=== PATIENT | male | born 1995 | race Caucasian/White ===

== ENCOUNTER 2017-11-08 19:48 | Emergency (ER) | payer SELFPAY ==
[2017-11-08] MEDS ORDERED: levETIRAcetam 500 MG Tab PO STA (20:05)
--- NOTE | 2017-11-08 20:09 | EDM.PDOC ---
ED HPI GENERAL MEDICAL PROBLEM - General Chief Complaint: Neuro Symptoms/Deficits Stated Complaint: seizure Time Seen by Provider: 11/08/17 19:50 Source of Information: Reports: Patient, EMS, Old Records History Limitations: Reports: No Limitations - History of Present Illness INITIAL COMMENTS - FREE TEXT/NARRATIVE: 22 yo male presents here after a presumed witnessed seizure. He has now been here 3 times for seizures, but reports multiple seizures in the interim for which he was not seen. No tongue biting or urinary incontinence ever, including tonight. He reports no remote hx of either head trauma or meningitis, but his father has had lifelong seizures. EMS reported that patient was post-ictal upon their arrival, vitals stable en route. 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 Now works at [employer] in the [employer]. Head CT scans and drug screens were negative on prior ER visits. All other blood work WNL's. Seizures not witnessed by EMS, patient not able to describe. No witnesses here at this time. Onset: Sudden Onset Date: 11/08/17 Duration: Minutes:, Resolved Prior to Arrival Location: Reports: Generalized Quality: Reports: Other (no pain reported. ) Severity: Moderate Improves with: Reports: Other (time) Worsens with: Reports: Other (unknown) Context: Reports: Other (Recurrent seizures over the past several weeks.) Associated Symptoms: Reports: No Other Symptoms. 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 Neurological History: Reports: None Social & Family History - Family History Family Medical History: Noncontributory - Caffeine Use Caffeine Use: Reports: Soda ED ROS GENERAL - Review of Systems Review Of Systems: See Below Constitutional: Reports: No Symptoms HEENT: Reports: No Symptoms, Other (no tongue injury) Respiratory: Reports: No Symptoms Cardiovascular: Reports: No Symptoms GI/Abdominal: Reports: No Symptoms : Reports: No Symptoms. Denies: Incontinence Musculoskeletal: Reports: No Symptoms Skin: Reports: No Symptoms Neurological: Reports: Seizure. Denies: Headache - Physical Exam Exam: See Below Exam Limited By: No Limitations General Appearance: Alert, WD/WN, No Apparent Distress Eye Exam: Bilateral Eye: EOMI, Normal Inspection, PERRL Ears: Normal External Exam, Normal Canal, Hearing Grossly Normal, Normal TMs Nose: Normal Inspection, Normal Mucosa, No Blood Throat/Mouth: Normal Inspection, Normal Lips, Normal Oropharynx, Normal Voice Head Exam: Atraumatic, Normocephalic Neck: Normal Inspection, Supple, Non-Tender Respiratory/Chest: No Respiratory Distress, Lungs Clear, Normal Breath Sounds, No Accessory Muscle Use Cardiovascular: Regular Rate, Rhythm GI/Abdominal: Normal Bowel Sounds, Soft, Non-Tender Neuro Exam (Abbreviated): Alert, Oriented, CN II-XII Intact, Normal Cognition, No Motor/Sensory Deficits Back Exam: Normal Inspection. No: CVA Tenderness (R), CVA Tenderness (L) Extremities: Normal Inspection, Normal Range of Motion, Non-Tender, No Pedal Edema Psychiatric: Normal Affect, Normal Mood Skin Exam: Warm, Dry, Intact, Normal Color, No Rash Departure - Departure Time of Disposition: 20:30 Disposition: Home, Self-Care 01 Condition: Good Clinical Impression: Seizure - Discharge Information *PRESCRIPTION DRUG MONITORING PROGRAM REVIEWED*: Not Applicable *COPY OF PRESCRIPTION DRUG MONITORING REPORT IN PATIENT CARI: Not Applicable Instructions: Epilepsy, [id number] Referrals: PCP,None [Primary Care Provider] - Forms: ED Department Discharge Additional Instructions: Increase your Keppra to 1000 mg every 12 hrs. Keep your scheduled appt with neurology. Someone will be contacting you to return for a brain MRI. No driving or operating dangerous equipment. Return here as needed.
== END 2017-11-08 20:35 | disposition home or self-care (01) ==
LOC: FB.ED 19:48
DX: R56.9 Unspecified convulsions (principal); Z88.1 Allergy status to other antibiotic agents; Z88.0 Allergy status to penicillin; Z79.899 Other long term (current) drug therapy
CPT/HCPCS: 99284; A9270

== ENCOUNTER 2023-06-26 17:35 | Emergency (ER) | payer SELFPAY ==
[2023-06-26] MEDS ORDERED: Sodium Chloride 0.9% 10 ML Syringe FLUSH PRN (17:53)
[2023-06-26] MEDS: Metoprolol Tartrate 25 MG Tab PO ONE (18:19)
[2023-06-26] MEDS: Aspirin 81 MG Tab.Chew PO STA (18:20)
[2023-06-26 18:23] LABS: BASOPHILS ABSOLUTE AUTO 0.1 x10-3/uL (0.0-0.3); EOSINOPHILS ABSOLUTE AUTO 0.1 x10-3/uL (0.0-0.6); EOSINOPHILS PERCENT AUTO 0.8 % (0.1-6.8); HEMATOCRIT 45.6 % (38.3-50.1); HEMOGLOBIN 15.3 g/dL (12.9-17.7); LYMPHOCYTES ABSOLUTE AUTO 2.8 x10-3/uL (0.5-4.5); LYMPHOCYTES PERCENT AUTO 30.9 % (15.8-45.3); MEAN CORPUSCULAR HEMOGLOBIN 27.9 pg (27.0-33.3); MEAN CORPUSCULAR HGB CONC 33.5 g/dL (28.7-35.3); MEAN CORPUSCULAR VOLUME 83.3 fL (80.8-98.7); MEAN PLATELET VOLUME 9.8 fL (6.7-11.0); MONOCYTES ABSOLUTE AUTO 0.7 x10-3/uL (0.0-1.2); MONOCYTES PERCENT AUTO 7.9 % (5.5-15.2); NEUTROPHILS ABSOLUTE AUTO 5.4 x10-3/uL (1.7-6.9); NEUTROPHILS PERCENT AUTO 59.4 % (40.3-71.8); PLATELET COUNT,PLT 274 x10(3)uL (117-477); RED BLOOD CELL COUNT 5.48 x10(6)uL (3.90-5.90); RED CELL DISTRIBUTION WIDTH 13.7 % (12.4-15.0); WHITE BLOOD CELL COUNT,WBC 9.1 x10-3/uL (3.2-10.1)
[2023-06-26 18:28] LABS: BLOOD UREA NITROGEN,BUN 14 mg/dL (7-18); BUN/CREATININE RATIO 15.6 (9-20); CALCIUM 9.4 mg/dL (8.6-10.2); CARBON DIOXIDE,CO2 25 mmol/L (21-32); CHLORIDE,CL 97 mmol/L (100-110); CREATININE 0.9 mg/dL (0.70-1.30); ESTIMATED GFR 121 mL/min (>60); GLUCOSE RANDOM 180 mg/dL (80-116); POTASSIUM,K 4.1 mmol/L (3.5-5.3); SODIUM,NA 132 mmol/L (135-145)
[2023-06-26 18:42] LABS: A/G RATIO 0.8; ALBUMIN 3.7 g/dL (3.5-5.2); ALKALINE PHOSPHATASE 102 IU/L (56-112); ASPARTATE AMNIOTRANSFERASE,AST 82 IU/L (5-25); BILIRUBIN TOTAL 0.8 mg/dL (0.1-1.3); PROTEIN TOTAL,TP 8.2 g/dL (6.0-8.0)
[2023-06-26 18:44] LABS: TSH ULTRASENSITIVE 2.15 IU/mL (0.36-3.74)
[2023-06-26 18:45] LABS: TROPONIN I < 4.0 pg/mL (4.0-60.3)
[2023-06-26 18:48] LABS: ALANINE AMINOTRANSFERASE,ALT 182 U/L (12-36)
== END 2023-06-26 19:20 | disposition home or self-care (01) ==
LOC: FB.ED 17:35
DX: R00.2 Palpitations (principal); R94.5 Abnormal results of liver function studies; Z79.899 Other long term (current) drug therapy; Z88.0 Allergy status to penicillin
CPT/HCPCS: 36415; 80053; 84443; 84484; 85025; 93005; 93010; 99283; 99285; A9270-GY

== ENCOUNTER 2024-07-06 09:27 | Emergency (ER) | payer SELFPAY | END 2024-07-06 10:40 | disposition home or self-care (01) | LOC: FB.ED 09:27 | DX: I10 Essential (primary) hypertension (principal); Z88.0 Allergy status to penicillin; Z88.1 Allergy status to other antibiotic agents; Z79.899 Other long term (current) drug therapy | CPT/HCPCS: 99283; 99284 ==

== ENCOUNTER 2024-10-29 21:38 | Emergency (ER) | payer BC, MEDICAID ==
[2024-10-29] MEDS: Ondansetron 4 MG Tab.DIS PO ONE (22:50)
[2024-10-29] MEDS: Lidocaine 2% Viscous Solution 15 ML UD PO ONE (22:52)
[2024-10-29] MEDS: Ketorolac 30 MG/ML SDV IM ONE (23:12)
== END 2024-10-29 23:24 | disposition home or self-care (01) ==
LOC: FB.ED 21:38
DX: K04.7 Periapical abscess without sinus (principal); E78.00 Pure hypercholesterolemia, unspecified; I10 Essential (primary) hypertension; E11.9 Type 2 diabetes mellitus without complications; Z88.0 Allergy status to penicillin; Z79.899 Other long term (current) drug therapy
CPT/HCPCS: 96372; 99282; A9270; J1885; Q0162

== ENCOUNTER 2024-11-08 18:31 | Emergency (ER) | payer MEDICAID ==
[2024-11-08 19:03] LABS: BASOPHILS ABSOLUTE AUTO 0.1 x10-3/uL (0.0-0.3); BASOPHILS PERCENT AUTO 1.0 % (0.3-3.8); EOSINOPHILS ABSOLUTE AUTO 0.1 x10-3/uL (0.0-0.6); EOSINOPHILS PERCENT AUTO 1.2 % (0.1-6.8); LYMPHOCYTES ABSOLUTE AUTO 3.4 x10-3/uL (0.5-4.5); LYMPHOCYTES PERCENT AUTO 37.7 % (15.8-45.3); MEAN PLATELET VOLUME 9.0 fL (6.7-11.0); MONOCYTES ABSOLUTE AUTO 0.5 x10-3/uL (0.0-1.2); MONOCYTES PERCENT AUTO 6.0 % (5.5-15.2); NEUTROPHILS ABSOLUTE AUTO 4.8 x10-3/uL (1.7-6.9); NEUTROPHILS PERCENT AUTO 54.1 % (40.3-71.8); PLATELET COUNT,PLT 357 x10(3)uL (117-477); RED BLOOD CELL COUNT 5.55 x10(6)uL (3.90-5.90); RED CELL DISTRIBUTION WIDTH 14.9 % (12.4-15.0); WHITE BLOOD CELL COUNT,WBC 8.9 x10-3/uL (3.2-10.1)
[2024-11-08 19:08] LABS: BLOOD UREA NITROGEN,BUN 7 mg/dL (7-18); CARBON DIOXIDE,CO2 25 mmol/L (21-32); CHLORIDE,CL 102 mmol/L (100-110); CREATININE 1.0 mg/dL (0.70-1.30); ESTIMATED GFR 105 mL/min (>60); GLUCOSE RANDOM 181 mg/dL (80-116); POTASSIUM,K 3.9 mmol/L (3.5-5.3); SODIUM,NA 138 mmol/L (135-145)
[2024-11-08 19:14] LABS: A/G RATIO 0.9; ALANINE AMINOTRANSFERASE,ALT 109 U/L (12-36); ASPARTATE AMNIOTRANSFERASE,AST 64 IU/L (5-25); BILIRUBIN TOTAL 0.4 mg/dL (0.1-1.3); PROTEIN TOTAL,TP 7.9 g/dL (6.0-8.0)
[2024-11-08] MEDS: Iopamidol 755 Mg/ML 100 ML Bottle IV SCH (20:39)
[2024-11-08] MEDS: LORazepam 2 MG/ML SDV IVPUSH STA (20:44)
== END 2024-11-08 21:45 | disposition home or self-care (01) ==
LOC: FB.ED 18:31
DX: K76.0 Fatty (change of) liver, not elsewhere classified (principal); I10 Essential (primary) hypertension; E78.00 Pure hypercholesterolemia, unspecified; E11.9 Type 2 diabetes mellitus without complications; Z88.0 Allergy status to penicillin; Z79.84 Long term (current) use of oral hypoglycemic drugs; Z79.899 Other long term (current) drug therapy
CPT/HCPCS: 71045; 71275; 80053; 84484; 85025; 85379; 93005; 96374; 99285; A9270; J2060; Q9967; 93010; 99284

== ENCOUNTER 2024-11-09 01:53 | Emergency (ER) | payer MEDICAID | END 2024-11-09 02:44 | disposition home or self-care (01) | LOC: FB.ED 01:53 → SUPCPDRO 01:53 → FB.ED 02:44 | DX: F41.0 Panic disorder [episodic paroxysmal anxiety] (principal); F41.1 Generalized anxiety disorder; E78.00 Pure hypercholesterolemia, unspecified; I10 Essential (primary) hypertension; E11.9 Type 2 diabetes mellitus without complications; Z88.0 Allergy status to penicillin; Z79.899 Other long term (current) drug therapy; Z79.84 Long term (current) use of oral hypoglycemic drugs | CPT/HCPCS: 96372; 99285; J3360; 93010; 99284 ==

== ENCOUNTER 2025-01-22 05:31 | Emergency (ER) | payer MEDICAID | END 2025-01-22 05:53 | disposition home or self-care (01) | LOC: FB.ED 05:31 | DX: R06.02 Shortness of breath (principal); R06.01 Orthopnea; E78.00 Pure hypercholesterolemia, unspecified; I10 Essential (primary) hypertension; E11.9 Type 2 diabetes mellitus without complications; Z88.0 Allergy status to penicillin; Z79.84 Long term (current) use of oral hypoglycemic drugs; Z79.899 Other long term (current) drug therapy | CPT/HCPCS: 99283 ==